=== PATIENT | male | born 1990 | race Caucasian/White ===

== ENCOUNTER 2018-09-05 06:55 | Emergency (ER) | payer SELFPAY ==
--- OUTSIDE RECORDS SUMMARY | 2018-09-05 06:58 | XMS REPORT | Continuity of Care Document ---
:1990 Author Organization [facility] Address [address] [place], [place] [id number] Phone Care Team Providers Name Role Phone Severino Kunz MD Unavailable Unavailable Allergies, Adverse Reactions, Alerts Substance Reaction Status No Known Allergies Active Medications Medication Instructions Dosage Effective Status Comments Dates (start - stop) hydroxyzine HCl take 0.5 tablet - Active [Pat Resp=0 50 mg tablet by oral route 3 pct;]. Stop times every day prescription for as needed for Hydroxyzine 25 anxiety and mg PO tid on insomnia this patient. Lipitor 10 mg take 1 tablet by 10 MG - Active [Pat Resp=0 tablet oral route every pct;] day lisinopril 10 take 1 tablet by 1.00 tablet - Active [Pat Resp= 0 mg-hydrochloroth oral route every pct;] iazide 12.5 mg day tablet Ambien 10 mg take 1 tablet by 10 MG - Active [Pat Resp=0 tablet oral route every pct;] day at bedtime sertraline 50 mg take 1 tablet by 50 MG - Active [Pat Resp=0 tablet oral route every pct;] day folic acid 1 mg take 1 tablet by 1 MG - Active [Pat Resp=0 tablet oral route every pct;] day hydroxyzine HCl take 1 tablet by 25 MG - No Longer [Pat Resp=0 25 mg tablet oral route 3 Active pct;] times every day as needed Problems Condition Effective Dates (start - stop) Clinical Status Comments No information Procedures Procedure Date No information Results Test Name Date and Time Measure Units Reference Range Abnormal Flag Status Comments No information Advance Directives Directive Yes / No Effective Date File Name No information Encounters Encounter Practice Location Reason(s) Diagnoses Date Provider Providers Description For Visit Copied on Encounter [facility] TC [facility] Referring Health & [facility] 0- Severino. Provider: Wellness, Health & [address] Vikas Kunz, [address], Yolande [place] [address], ExpVikas paez [place], [address], [place] [id number] [facility] C, tel:+ [phone] [place] [phone] . [place], [place], tel:+ [phone] tel:[phone] [facility] Gal Body mass index [facility] Referring Health & [facility] (BMI) 23.0-23.9, Severino. Provider: Wellness, Health & adultEssential 8 [address] Severino [address] (primary) Vikas Kunz, [address], Yolande hypertensionAlcohol- [place] [address], induced chronic [facility], Vikas [facility], pancreatitisAnxiety [address], Padmini [id number] depression [place], [place], [facility] C, tel:+ [phone] [place] [phone] . [place], [place], tel:+ [phone] tel:[phone] [facility] [place] Referring Health & [facility] rrison Provider: Wellness, Health & 8 [place]. [place] [address]-Z[address]h [address], David [place], [place] [address] [place], [place], Vikas Rubio [id number] [address], [place] , [facility] tel:+40 [facility] [address], [id number] [place] . [place], [place], tel:+ [phone]. [phone] tel:[phone] [facility] Gal Essential [facility] Ref[facility] & [facility] hypertensionAnxiety rrison Provider: Wellness, Health & depressionInsomnia 8 [address]. [address]isp[place] [address], [place] Harmon Lowry [address] [place], ExpVikas [place] [id number] [address], [facility] tel:+40 [place], [place], [facility] [place], [id number] [place] . [place], [place], tel:+ [phone]. [phone] tel:[phone] [facility] [place] Health & Coast[place] remissionEssential [address] [place]. Provider: Wellness, Health & (primary) [address] [place] [address] hypertensionAnxiety Vikas Blue, [address], [place] depressionBody mass Padmini [address], index (BMI) Vikas Kamara [place], 23.0-23.9, adult [facility] [place], [place] [id number] [place], [place], [address], tel:+ [phone] [place] [phone] . [place], [place], tel:+ [phone]. [phone] tel:[phone] Family History Family Member Diagnosis Age At Onset No information Immunizations Vaccine Date Status Comments No information Payers Payer name Insurance type Covered democrat ID Authorization(s) No information Social History Type Description Quantity Date Captured Comments Sex Male Vital Signs Date / Height Weight BMI Pulse Blood Temperature Respiratory Body Head BMI Pulse Inhaled Time: Rate Pressure Rate Surface Circumference percentile Ox Ox Area No information Chief Complaint And Reason For Visit No information Reason For Referral Reason For Referral No information Plan Of Treatment Date Type Action Status Goal Dietary management education, guidance, and completed counseling Goal Lifestyle education regarding diet completed Appointment Sai Romero BOOKED History Of Present Illness Encounter Date Complaint History Of Present Illness No information Functional Status Date Functional Assessment No information Medications Administered Medication Instructions Dosage Effective Dates (start - stop) Status Comments No information Instructions Date Instruction Additional Information Dietary management education, Related to Body mass index (BMI) guidance, and counseling 23.0-23.9, adult Lifestyle education regarding diet Related to Body mass index ( BMI) 23.0-23.9, adult Assessments Type Assessment Date No information Goals Health Concern Goal Type Priority Status Date No information Medical Equipment Description Device [place] Device Identifier Effective Dates (start - stop ) Status No information Mental Status Date Cognitive Assessment No information Health Concerns Observation Date No information Concern Status Date No information
--- OUTSIDE RECORDS SUMMARY | 2018-09-05 06:58 | XMS REPORT ---
:1990 Author [facility] Address [address] [place] [address] [address] [place] [address] Care Team Providers Name Role Phone Unavailable Unavailable Unavailable Problems This patient has no known problems. Allergies, Adverse Reactions, Alerts This patient has no known allergies or adverse reactions. Medications This patient has no known medications.
[2018-09-05 07:30] LABS: Absolute Lymphocytes (CBC) 2.5 K/uL (0.7-4.9); Absolute Monocytes 0.5 K/uL (0.1-1.3); Absolute Neutrophil 2.1 K/uL (1.8-8.0); Basophils % 1.1 % (0-1.3); Eosinophils % 4.6 % (0-4.4); Hematocrit 44.3 % (39.6-49.0); MPV 7.1 fL (7.6-11.3); Monocytes % 9.2 % (3.3-12.3); RBC Red Blood Cell Count 5.11 M/uL (4.33-5.43)
[2018-09-05] MEDS ORDERED: NA CHLORIDE 0.9% 1,000 ML ONE (07:31)
[2018-09-05 07:35] LABS: Protime INR 0.95
[2018-09-05 07:55] LABS: ALT/SGPT 38 U/L (12-78); AST/SGOT 41 U/L (15-37); Albumin 4.5 g/dL (3.4-5.0); Alkaline Phosphatase 89 U/L (45-117); BUN Blood Urea Nitrogen 5 mg/dL (7-18); Bicarbonate 25 mmol/L (21-32); Bilirubin Direct 0.2 mg/dL (0-0.2); Bilirubin Total 0.6 mg/dL (0.2-1.0); Glucose Level 84 mg/dL (74-106); Lipase 134 U/L (73-393); Magnesium 2.7 mg/dL (1.8-2.4); Potassium 3.6 mmol/L (3.5-5.1); Protein, Total 8.7 g/dL (6.4-8.2); Sodium Level 136 mmol/L (136-145); Troponin (Emerg Dept Use Only) < 0.02 ng/mL (0.0-0.045)
--- NOTE | 2018-09-05 08:53 | EDPHYS ---
Physician Documentation [facility] Name: Sai Romero Age: 28 yrs Sex: Male : 1990 Arrival Date: 09/05/2018 Time: 06:58 Bed 5 Private MD: ED Physician Melo Kuo HPI: 09/05 09:00 This 28 yrs old Male presents to ER via EMS with complaints of Chest Pain. snw 09:00 The patient or guardian reports chest pain that is located primarily in the substernal snw area, epigastric area. The pain does not radiate. Associated signs and symptoms: Pertinent positives: abdominal pain, nausea. The chest pain is described as stabbing. Duration: The patient or guardian reports a single episode, that is still ongoing. Severity of pain: At its worst the pain was moderate. The patient has experienced similar episodes in the past, multiple times. hospitalized in [place] for 8 days one month ago. Historical: - Allergies: 07:06 No Known Allergies; jd3 - Home Meds: 07:06 lisinopril Oral [Active]; hydroxyzine HCl Oral [Active]; Zyrtec Oral [Active]; jd3 - PMHx: 07:06 Hypertension; Anxiety; Irregular heart rate; Pancreatitis; jd3 - PSHx: 07:06 "left lung sx"; jd3 - Immunization history:: Adult Immunizations up to date. - Social history:: Smoking status: Patient uses tobacco products, reports smoking a lot while drinking, Patient uses alcohol, patient/guardian reports recent binge of alcohol consumption. - Ebola Screening: : Patient negative for fever greater than or equal to 101.5 degrees Fahrenheit, and additional compatible Ebola Virus Disease symptoms. ROS: 08:59 Constitutional: Negative for fever, chills, and weight loss, Eyes: Negative for injury, snw pain, redness, and discharge, ENT: Negative for injury, pain, and discharge, Neck: Negative for injury, pain, and swelling, Respiratory: Negative for shortness of breath, cough, wheezing, and pleuritic chest pain, Abdomen/GI: Negative for abdominal pain, nausea, vomiting, diarrhea, and constipation, Back: Negative for injury and pain, : Negative for injury, bleeding, discharge, and swelling, MS/Extremity: Negative for injury and deformity, Skin: Negative for injury, rash, and discoloration, Neuro: Negative for headache, weakness, numbness, tingling, and seizure. 08:59 Cardiovascular: Positive for chest pain. Exam: 07:09 Constitutional: This is a well developed, well nourished patient who is awake, alert, snw and in no acute distress. Head/Face: Normocephalic, atraumatic. Eyes: Pupils equal round and reactive to light, extra-ocular motions intact. Lids and lashes normal. Conjunctiva and sclera are non-icteric and not injected. Cornea within normal limits. Periorbital areas with no swelling, redness, or edema. ENT: Nares patent. No nasal discharge, no septal abnormalities noted. Tympanic membranes are normal and external auditory canals are clear. Oropharynx with no redness, swelling, or masses, exudates, or evidence of obstruction, uvula midline. Mucous membranes moist. Neck: Trachea midline, no thyromegaly or masses palpated, and no cervical lymphadenopathy. Supple, full range of motion without nuchal rigidity, or vertebral point tenderness. No Meningismus. Chest/axilla: Normal chest wall appearance and motion. Nontender with no deformity. No lesions are appreciated. 07:09 Respiratory: Lungs have equal breath sounds bilaterally, clear to auscultation and percussion. No rales, rhonchi or wheezes noted. No increased work of breathing, no retractions or nasal flaring. Abdomen/GI: Soft, tender, with normal bowel sounds. No distension or tympany. Voluntary guarding, no rebound. Back: No spinal tenderness. No costovertebral tenderness. Full range of motion. Skin: Warm, dry with normal turgor. Normal color with no rashes, no lesions, and no evidence of cellulitis. MS/ Extremity: Pulses equal, no cyanosis. Neurovascular intact. Full, normal range of motion. Neuro: Awake and alert, GCS 15, oriented to person, place, time, and situation. Cranial nerves II-XII grossly intact. Motor strength 5/5 in all extremities. Sensory grossly intact. Cerebellar exam normal. Normal gait. 07:09 Cardiovascular: Rate: tachycardic, Rhythm: irregular, Pulses: no pulse deficits are appreciated, Heart sounds: normal. Vital Signs: 07:07 BP 140 / 93; Pulse 102; Resp 20 S; Temp 98.6(O); Pulse Ox 95% on R/A; Weight 66.68 kg jd3 (R); Height 5 ft. 6 in. (167.64 cm) (R); Pain 9/10; 07:52 BP 109 / 63; Pulse 81; Resp 16 S; Pulse Ox 98% on R/A; Pain 9/10; iw 07:07 Body Mass Index 23.73 (66.68 kg, 167.64 cm) jd3 MDM: 07:00 Patient medically screened. snw 08:59 Data reviewed: vital signs, nurses notes. Data interpreted: Pulse oximetry: is 98 %. snw Interpretation: normal. Counseling: I had a detailed discussion with the patient and/or guardian regarding: the historical points, exam findings, and any diagnostic results supporting the discharge/admit diagnosis, lab results, the need for outpatient follow up, to return to the emergency department if symptoms worsen or persist or if there are any questions or concerns that arise at home. Special discussion: Based on the patient's history, exam, and Dx evaluation, there is no indication for emergent intervention or inpatient Tx. It is understood by the patient/guardian that if the Sx's persist or worsen they need to return immediately for re-evaluation. Based on the patient's Hx, exam, and Dx evaluation, there is no indication for emergent surgery or inpatient Tx. It is understood by the patient/guardian that if the Sx's persist or worsen they need to return immediately for re-evaluation. Based on the history and exam findings, there is no indication for further emergent testing or inpatient evaluation. I discussed with the patient/guardian the need to see the primary care provider for further evaluation of the symptoms. I discussed with the patient/guardian the need to see the psychiatrist for further evaluation of the symptoms. 09/05 07:08 Order name: Basic Metabolic Panel; Complete Time: 07:59 snw 09/05 07:08 Order name: CBC with Diff; Complete Time: 07:41 snw 09/05 07:08 Order name: LFT's; Complete Time: 07:59 snw 09/05 07:08 Order name: Magnesium; Complete Time: 07:59 snw 09/05 07:08 Order name: PT-INR; Complete Time: 07:41 snw 09/05 07:08 Order name: Troponin (emerg Dept Use Only); Complete Time: 07:59 snw 09/05 07:08 Order name: XRAY Chest (1 view) snw 09/05 07:08 Order name: EKG; Complete Time: 07:09 snw 09/05 07:08 Order name: Cardiac monitoring; Complete Time: 07:24 snw 09/05 07:08 Order name: EKG - Nurse/Tech; Complete Time: 07:51 snw 09/05 07:08 Order name: Lipase; Complete Time: 07:59 snw 09/05 07:08 Order name: ETOH Level; Complete Time: 07:59 snw 09/05 07:08 Order name: IV Saline Lock; Complete Time: 07:24 snw 09/05 07:08 Order name: Labs collected and sent; Complete Time: 07:24 snw 09/05 07:08 Order name: O2 Per Protocol; Complete Time: 07:24 snw 09/05 07:08 Order name: O2 Sat Monitoring; Complete Time: 07:24 snw Administered Medications: 07:27 Drug: NS 0.9% 1000 ml Route: IV; Rate: 1 bolus; Site: right antecubital; iw 09:01 Drug: ProTONIX 40 mg Route: IVP; Site: right antecubital; Disposition: 09/05/18 08:52 Discharged to Home. Impression: Alcohol abuse with intoxication, Upper abdominal pain, unspecified. - Condition is Stable. - Discharge Instructions: Abdominal Pain, Adult, Alcohol Intoxication, Alcohol Use Disorder, Addiction and the Family, Alcohol Abuse and Nutrition, Rehydration, Adult, Alcoholic Liver Disease, What You Need to Know About Alcohol Abuse and Dependence, Youth. - Prescriptions for Protonix 40 mg Oral Tablet - take 1 tablet by ORAL route once daily; 30 tablet. Zofran 4 mg Oral Tablet - take 1 tablet by ORAL route every 12 hours As needed; 20 tablet. - Work release form, Medication Reconciliation Form, Thank You Letter, Antibiotic Education, Prescription Opioid Use form. - Follow up: Private Physician; When: 1 - 2 days; Reason: Recheck today's complaints, Continuance of care. Follow up: Emergency Department; When: As needed; Reason: Worsening of condition. Signatures: Dispatcher [employer] EDSharon Mosher, MARLA-C PATTERNMAKER APPRENTICE WOOD-Csnw EdmundoSophia RN RN iw Davies, Jonathon, RN RN jd3 Corrections: (The following items were deleted from the chart) 09:17 08:52 09/05/2018 08:52 Discharged to Home. Impression: Alcohol abuse with intoxication; iw Upper abdominal pain, unspecified. Condition is Stable. Forms are Medication Reconciliation Form, Thank You Letter, Antibiotic Education, Prescription Opioid Use. Follow up: Private Physician; When: 1 - 2 days; Reason: Recheck today's complaints, Continuance of care. Follow up: Emergency Department; When: As needed; Reason: Worsening of condition. snw
--- NOTE | 2018-09-05 08:53 | ER ---
Nurse's Notes [facility] Name: Sai Romero Age: 28 yrs Sex: Male : 1990 Arrival Date: 09/05/2018 Time: 06:58 Bed 5 Private MD: Diagnosis: Alcohol abuse with intoxication;Upper abdominal pain, unspecified Presentation: 09/05 06:58 Presenting complaint: EMS states: "He has chest pain starting at 0500 with vomiting. he jd3 reported it radiated down to his left side. reports it gets worse with movement. he also reported he has a history of pancreatitis and this feels similar to that, but not the same.". Transition of care: patient was not received from another setting of care. Onset of symptoms was September 05, 2018. Risk Assessment: Do you want to hurt yourself or someone else? Patient reports no desire to harm self or others. Initial Sepsis Screen: Does the patient meet any 2 criteria? No. Patient's initial sepsis screen is negative. Does the patient have a suspected source of infection? No. Patient's initial sepsis screen is negative. Care prior to arrival: Medication(s) given: Aspirin 324 mg. 06:58 Method Of Arrival: EMS: [facility] jd3 06:58 Acuity: CINTHYA 3 jd3 Historical: - Allergies: 07:06 No Known Allergies; jd3 - Home Meds: 07:06 lisinopril Oral [Active]; hydroxyzine HCl Oral [Active]; Zyrtec Oral [Active]; jd3 - PMHx: 07:06 Hypertension; Anxiety; Irregular heart rate; Pancreatitis; jd3 - PSHx: 07:06 "left lung sx"; jd3 - Immunization history:: Adult Immunizations up to date. - Social history:: Smoking status: Patient uses tobacco products, reports smoking a lot while drinking, Patient uses alcohol, patient/guardian reports recent binge of alcohol consumption. - Ebola Screening: : Patient negative for fever greater than or equal to 101.5 degrees Fahrenheit, and additional compatible Ebola Virus Disease symptoms. Screenin:28 Abuse screen: Denies threats or abuse. Denies injuries from another. Nutritional iw screening: No deficits noted. Tuberculosis screening: No symptoms or risk factors identified. Fall Risk IV access (20 points). Assessment: 07:28 General: Appears in no apparent distress. Behavior is cooperative. Pain: Complains of iw pain in abdomen Pain does not radiate. Pain currently is 9 out of 10 on a pain scale. Quality of pain is described as rumbling, burning Pain began 1 day ago. Is continuous. Neuro: Level of Consciousness is awake, alert, obeys commands, Facial symmetry appears normal. Cardiovascular: Capillary refill < 3 seconds in bilateral fingers Patient's skin is warm and dry. Respiratory: Respiratory effort is even, unlabored, Respiratory pattern is regular, symmetrical. GI: Abdomen is flat, Reports lower abdominal pain, upper abdominal pain, nausea. Derm: Skin is intact, is healthy with good turgor. 08:20 Reassessment: Patient appears in no apparent distress at this time. Patient and/or iw family updated on plan of care and expected duration. Pain level reassessed. Patient is alert, oriented x 3, equal unlabored respirations, skin warm/dry/pink. warm blanket given, call light within reach. Vital Signs: 07:07 BP 140 / 93; Pulse 102; Resp 20 S; Temp 98.6(O); Pulse Ox 95% on R/A; Weight 66.68 kg jd3 (R); Height 5 ft. 6 in. (167.64 cm) (R); Pain 9/10; 07:52 BP 109 / 63; Pulse 81; Resp 16 S; Pulse Ox 98% on R/A; Pain 9/10; iw 07:07 Body Mass Index 23.73 (66.68 kg, 167.64 cm) jd3 ED Course: 06:58 Patient arrived in ED. bb 06:59 Sharon Young FNP-C [facility]. snw 06:59 Melo Kuo MD is Attending Physician. snw 07:00 Triage completed. jd3 07:07 Arm band placed on. EKG completed in triage. Results shown to MD. jd3 07:16 Sophia Wyatt, RN is Primary Nurse. iw 07:18 X-ray completed. Portable x-ray completed in exam room. Patient tolerated procedure sw well. 07:18 XRAY Chest (1 view) In Process Unspecified. EDMS 07:30 Patient has correct armband on for positive identification. compliance monitor on. Pulse iw ox on. NIBP on. 07:30 IV. Patient maintains SpO2 saturation greater than 95% on room air. iw 09:16 No provider procedures requiring assistance completed. IV discontinued, intact, iw bleeding controlled, No redness/swelling at site. Pressure dressing applied. Administered Medications: 07:27 Drug: NS 0.9% 1000 ml Route: IV; Rate: 1 bolus; Site: right antecubital; iw 09:01 Drug: ProTONIX 40 mg Route: IVP; Site: right antecubital; iw Outcome: 08:52 Discharge ordered by MD. mccann 09:16 Discharged to home ambulatory. iw 09:16 Condition: good 09:16 Discharge instructions given to patient, Instructed on discharge instructions, follow up and referral plans. medication usage, Demonstrated understanding of instructions, follow-up care, medications, Prescriptions given X 2. 09:17 Patient left the ED. iw Signatures: Dispatcher [employer] EDMS Sharon Young, BRICK CLEANER-C BRICK CLEANER-Csnw Maida Herrmann, RN RN Sophia Alonso RN RN iw Warren, Shannon sw Davies, Jonathon RN RN jd3 Corrections: (The following items were deleted from the chart) 07:01 06:58 Care prior to arrival: None. shay jd3
[2018-09-05] MEDS ORDERED: PANTOPRAZOLE 40 MG INJ ONE (09:08)
--- NOTE | 2018-09-05 09:30 | RAD REPORT ---
EXAM DESCRIPTION: Janice Single View09/05/2018 7:20 am CLINICAL HISTORY: Chest pain COMPARISON: none FINDINGS: The lungs appear clear of acute infiltrate. The heart is normal size IMPRESSION: No acute abnormalities displayed
--- NOTE | 2018-09-05 12:53 | EKG ---
Test Date: 2018-09-05 Test Time: 06:54:38 Analytical Lab Technician: RIDGE MEASUREMENT RESULTS: Intervals: Rate: 96 OH: 140 QRSD: 98 QT: 368 QTc: 464 [place]: P: 56 OH: 140 QRS: 37 T: 59 INTERPRETIVE STATEMENTS: Normal sinus rhythm Normal ECG No previous ECG available for comparison Electronically Signed On 09-05-18 12:52:58 HAIRPIECE STYLIST by Carlos Barksdale
== END 2018-09-05 09:17 | disposition home or self-care (01) ==
LOC: ER 06:55
DX: F10.129 Alcohol abuse with intoxication, unspecified (principal); R10.10 Upper abdominal pain, unspecified; I10 Essential (primary) hypertension; F41.9 Anxiety disorder, unspecified; F17.200 Nicotine dependence, unspecified, uncomplicated; Z79.899 Other long term (current) drug therapy
CPT/HCPCS: 36415; 71045; 80048; 80076; 80320; 83690; 83735; 84484; 85025; 85610; 93005; 96374; 99285; C9113; J7030